=== PATIENT | male | born 1975 | race African-American/Black ===

== ENCOUNTER 2022-09-09 15:45 | Emergency (ER) | payer MEDICAID ==
[~2022-09-09] VITALS: Ht 180.3 cm; Wt 113.4 kg
[2022-09-09] MEDS ORDERED: NORVASC10 MG PO (18:24)
[2022-09-09 18:40] VITALS: BP 172/104
== END 2022-09-09 18:40 | disposition home or self-care (01) ==
LOC: ED 15:45
DX: I10 Essential (primary) hypertension (principal)
CPT/HCPCS: 99283